=== PATIENT | female | born 1995 | race African-American/Black ===

== ENCOUNTER 2017-07-17 20:37 | Emergency (ER) | payer MEDICAID ==
[~2017-07-17] VITALS: Ht 154.9 cm; Wt 111.0 kg
[2017-07-17] MEDS ORDERED: IBUPROFEN 600MG TABLET PO ONE (22:45)
[2017-07-17 23:55] LABS: CHLORIDE 105 mEq/L (98-107)
[2017-07-18] LABS: BASOPHILS % 0.3 % (0.0-2.0); EOSINOPHILS % 3.3 % (0.0-5.0); HCG SCREEN NEGATIVE; HEMATOCRIT. 34.3 % (36.0-48.0); HEMOGLOBIN. 11.4 g/dL (12.0-16.0); LYMPHOCYTES % 35.8 % (20.0-50.0); MEAN CORPUSCULAR HEMOGLOBIN 27.7 pg (28.0-32.0); MEAN CORPUSCULAR VOLUME 83.4 fL (81.0-99.0); MEAN PLATELET VOLUME 9.4 fl (7.4-10.4); MONOCYTES % 5.4 % (2.0-8.0); NEUTROPHILS % 55.2 % (40.0-76.0); PLATELET 260 x1000/uL (130-400); RED BLOOD CELL COUNT 4.11 mill/uL (4.2-5.4); RED CELL DISTRIBUTION WIDTH 13.3 % (11.6-14.6)
[2017-07-18] MEDS ORDERED: POTASSIUM CHLORIDE 20MEQ TABLET SR PO ONE
[2017-07-18 00:19] LABS: D-DIMER 0.48 mg/L FEU (<0.50); PARTIAL THROMBOPLASTIN TIME 25.9 sec (23.4-31.0); PROTHROMBIN TIME 10.5 sec (9.4-11.6)
[2017-07-18 00:55] VITALS: BP 134/90
== END 2017-07-18 01:00 | disposition home or self-care (01) ==
LOC: ER 20:37
DX: R07.89 Other chest pain (principal); E87.6 Hypokalemia; D64.9 Anemia, unspecified; J45.909 Unspecified asthma, uncomplicated; Q66.89 Other specified congenital deformities of feet
CPT/HCPCS: 36415; 71045; 80053; 83690; 84484; 84703; 85025; 85379; 85610; 85730; 93005; 99285

== ENCOUNTER 2018-08-14 21:54 | Emergency (ER) | payer MEDICAID ==
[~2018-08-14] VITALS: Ht 162.6 cm; Wt 92.0 kg
[2018-08-14] MEDS ORDERED: PREDNISONE 20MG TABLET PO STA (23:00)
[2018-08-14] MEDS ORDERED: ALBUTEROL (0.083%) 2.5MG/3ML NEB HHN STA (23:00)
[2018-08-14] MEDS ORDERED: IPRATROPIUM BROMIDE (0.02%) 0.5MG/2.5ML NEB HHN STA (23:00)
[2018-08-15 01:28] VITALS: BP 135/86
== END 2018-08-15 01:31 | disposition home or self-care (01) ==
LOC: ER 21:54
DX: J45.901 Unspecified asthma with (acute) exacerbation (principal); F12.10 Cannabis abuse, uncomplicated
CPT/HCPCS: 94640; 99283; J7512; J7611

== ENCOUNTER 2019-02-19 01:57 | Emergency (ER) | payer MEDICAID ==
[~2019-02-19] VITALS: Ht 154.9 cm; Wt 113.5 kg
[2019-02-19] MEDS ORDERED: ACETAMINOPHEN 325MG TABLET PO NR (07:10)
[2019-02-19] MEDS ORDERED: SODIUM CHLORIDE 0.9% 1,000 ML IV ONE (07:10)
[2019-02-19 08:01] LABS: HEMATOCRIT. 39.8 % (36.0-48.0); HEMOGLOBIN. 12.9 g/dL (12.0-16.0); MEAN CORPUSCULAR HEMOGLOBIN 28.1 pg (28.0-32.0); MEAN CORPUSCULAR VOLUME 86.4 fL (81.0-99.0); MEAN PLATELET VOLUME 10.2 fl (7.4-10.4); PLATELET 235 x1000/uL (130-400); RED CELL DISTRIBUTION WIDTH 13.4 % (11.6-14.6)
[2019-02-19 08:02] LABS: CHLORIDE 109 mEq/L (98-107); PROTHROMBIN TIME 10.7 sec (9.6-11.0)
[2019-02-19 09:13] LABS: PLATELET ESTIMATE NORMAL
[2019-02-19 09:49] LABS: CLARITY URINE CLEAR (CLEAR); COLOR URINE DK YELLOW (YELLOW); KETONES URINE NEGATIVE (NEGATIVE); LEUKOCYTE ESTERASE URINE 1+ (NEGATIVE); NITRITE URINE NEGATIVE (NEGATIVE); OCCULT BLOOD URINE 3+ (NEGATIVE); PH URINE 5.5 (4.5-8.0); PROTEIN URINE TRACE (NEGATIVE); SPECIFIC GRAVITY URINE 1.026 (1.005-1.030); UROBILINOGEN URINE 0.2 E.U./dL (0.2-1.0)
[2019-02-19 12:12] VITALS: BP 120/80
== END 2019-02-19 15:41 | disposition home or self-care (01) ==
LOC: ER 01:57
DX: N30.91 Cystitis, unspecified with hematuria (principal); R10.84 Generalized abdominal pain
CPT/HCPCS: 36415; 74176; 80053; 81003; 81025; 83690; 85025; 85610; 96360; 96361; 99284; Z7610

== ENCOUNTER 2019-04-15 21:01 | Inpatient (IN) | payer MEDICAID ==
[~2019-04-15] VITALS: Ht 172.7 cm; Wt 99.8 kg
[2019-04-15] MEDS ORDERED: ACETAMINOPHEN 325MG TABLET ONE (21:31)
[2019-04-15] MEDS ORDERED: ACETAMINOPHEN 650MG/20.3ML UDC PO ONE (22:30)
[2019-04-15] MEDS ORDERED: SODIUM CHLORIDE 0.9% 1000ML BAG (SEPSIS BOLUS) IV NR (22:45)
[2019-04-16 00:28] LABS: CHLORIDE 105 mEq/L (98-107)
[2019-04-16 00:31] LABS: PROTHROMBIN TIME 11.1 sec (9.6-11.0)
[2019-04-16 00:58] LABS: BASOPHILS % 0.1 % (0.0-2.0); EOSINOPHILS % 0.1 % (0.0-5.0); HEMATOCRIT. 36.2 % (36.0-48.0); HEMOGLOBIN. 12.4 g/dL (12.0-16.0); LYMPHOCYTES % 32.2 % (20.0-50.0); MEAN CORPUSCULAR HEMOGLOBIN 28.9 pg (28.0-32.0); MEAN CORPUSCULAR VOLUME 84.6 fL (81.0-99.0); MEAN PLATELET VOLUME 10.1 fl (7.4-10.4); MONOCYTES % 7.6 % (2.0-8.0); PLATELET 180 x1000/uL (130-400); RED BLOOD CELL COUNT 4.28 mill/uL (4.2-5.4); RED CELL DISTRIBUTION WIDTH 13.4 % (11.6-14.6)
[2019-04-16] MEDS ORDERED: KETOROLAC 30MG/ML VIAL IV ONE (01:30)
[2019-04-16 01:43] LABS: HCG SCREEN NEGATIVE
[2019-04-16 01:49] LABS: CLARITY URINE CLEAR (CLEAR); COLOR URINE YELLOW (YELLOW); KETONES URINE 3+ (NEGATIVE); LEUKOCYTE ESTERASE URINE TRACE (NEGATIVE); NITRITE URINE NEGATIVE (NEGATIVE); OCCULT BLOOD URINE 3+ (NEGATIVE); PROTEIN URINE 1+ (NEGATIVE); SPECIFIC GRAVITY URINE 1.018 (1.005-1.030); UROBILINOGEN URINE 0.2 E.U./dL (0.2-1.0)
[2019-04-16] MEDS ORDERED: AZITHROMYCIN 500 MG TABLET PO ONE (02:15)
[2019-04-16] MEDS ORDERED: CEFTRIAXONE 1 G PREMIX 50 ML IV ONE (02:15)
[2019-04-16] MEDS ORDERED: IPRATROPIUM/ALBUTEROL 0.5-3(2.5)MG/3ML NEB HHN PRN ×2 (08:30→16:45)
[2019-04-16] MEDS ORDERED: ONDANSETRON HCL 4MG/2ML INJ IV PRN (08:30)
[2019-04-16] MEDS ORDERED: ACETAMINOPHEN 325MG TABLET PO PRN (08:30)
[2019-04-16] MEDS ORDERED: POTASSIUM CHLORIDE 20MEQ TABLET SR PO NR (08:30)
[2019-04-16] MEDS ORDERED: PIPERACILLIN/TAZOBACTAM 3.375 G in DEXT 5% WATER 100 ML IV SCH (08:30)
[2019-04-16] MEDS ORDERED: PIPERACILLIN/TAZ 3.375G PREMIX 50 ML IV NR (08:48)
[2019-04-16 13:42] VITALS: BP 145/92
[2019-04-16] MEDS ORDERED: BENZONATATE 100MG CAPSULE PO PRN (14:30)
[2019-04-16 15:45] VITALS: BP 160/96
[2019-04-16] MEDS: PIPERACILLIN/TAZOBACTAM 3.375 G in DEXT 5% WATER 100 ML IV SCH (17:48)
[2019-04-16 20:00] VITALS: BP 120/79
[2019-04-16] MEDS: IPRATROPIUM/ALBUTEROL 0.5-3(2.5)MG/3ML NEB HHN SCH ×2 (20:59→23:59)
[2019-04-16] MEDS: GUAIFENESIN 600MG ER TABLET PO SCH (21:21)
[2019-04-16] MEDS ORDERED: PIPERACILLIN/TAZOBACTAM 3.375 G/VIAL IV SCH (22:00)
[2019-04-17] VITALS: BP 116/70
[2019-04-17] MEDS: PIPERACILLIN/TAZOBACTAM 3.375 G in DEXT 5% WATER 100 ML IV SCH ×2 (01:29→10:09)
[2019-04-17] MEDS: IPRATROPIUM/ALBUTEROL 0.5-3(2.5)MG/3ML NEB HHN SCH (03:33)
[2019-04-17 04:00] VITALS: BP 115/60
[2019-04-17 07:02] LABS: CHLORIDE 108 mEq/L (98-107)
[2019-04-17 07:10] LABS: BASOPHILS % 0.2 % (0.0-2.0); EOSINOPHILS % 0.7 % (0.0-5.0); HEMATOCRIT. 33.4 % (36.0-48.0); HEMOGLOBIN. 11.4 g/dL (12.0-16.0); LYMPHOCYTES % 51.2 % (20.0-50.0); MEAN CORPUSCULAR HEMOGLOBIN 28.9 pg (28.0-32.0); MEAN CORPUSCULAR VOLUME 84.5 fL (81.0-99.0); MEAN PLATELET VOLUME 9.7 fl (7.4-10.4); MONOCYTES % 10.3 % (2.0-8.0); NEUTROPHILS % 37.6 % (40.0-76.0); PLATELET 170 x1000/uL (130-400); RED BLOOD CELL COUNT 3.95 mill/uL (4.2-5.4); RED CELL DISTRIBUTION WIDTH 13.2 % (11.6-14.6)
[2019-04-17] MEDS ORDERED: POTASSIUM CHLORIDE 20MEQ TABLET SR PO NR (08:00)
[2019-04-17] MEDS: GUAIFENESIN 600MG ER TABLET PO SCH (08:19)
[2019-04-17 12:00] VITALS: BP 143/79
[2019-04-17] MEDS ORDERED: LEVO750T21 MT (15:18)
[2019-04-17] MEDS ORDERED: BENZ-16 MT (15:18)
[2019-04-17] MEDS ORDERED: GUAI600T26 MT (15:18)
[2019-04-17 15:50] VITALS: BP 143/79
== END 2019-04-17 17:33 | disposition home or self-care (01) | DRG 720 ==
LOC: ER 21:01 → 6WST 04-16 02:21 → EDBEDREQSVC 04-16 02:23 → EDBEDREQ 04-16 02:23 → ENRESERV 04-16 12:21
PROVIDERS: ADMIT Internal Medicine; ATTEND Internal Medicine
DX: A41.9 Sepsis, unspecified organism (principal); J18.9 Pneumonia, unspecified organism; E87.6 Hypokalemia; K52.9 Noninfective gastroenteritis and colitis, unspecified; F12.10 Cannabis abuse, uncomplicated; J45.909 Unspecified asthma, uncomplicated; Z80.1 Family history of malignant neoplasm of trachea, bronchus and lung; Z80.3 Family history of malignant neoplasm of breast; Z91.018 Allergy to other foods; Z91.013 Allergy to seafood
CPT/HCPCS: 36415; 71045; 80048; 80053; 81003; 83605; 84145; 84484; 84703; 85025; 87015; 87045; 87427; 87449; 87804; 93005; 94640; 99291; J0696; J1885; J2543; J7060